=== PATIENT | male | born 1995 | race Two or more races ===

== ENCOUNTER 2017-06-06 18:05 | Emergency (ER) | payer SELFPAY ==
[~2017-06-06] VITALS: Ht 170.2 cm; Wt 102.1 kg
--- NOTE | 2017-06-06 18:30 | NUR ---
PT [id number]/lapd from snf: laceration to forehead s/p banging head against wall. NOTED AGITATED, COMBATIVE, RESLTLESS, YELLING, CURSING, KICKING. NOTED ACTIVE BLEEDING ON FOREHEAD 2 INCHES LAC. SAFELY PLACED ON 4 POINT RESTRAINTS PER PROTOCOL. SAFETY MEASURES PROVIDED. WILL MONITOR.
--- NOTE | 2017-06-06 18:40 | NUR ---
IV ACCESS STARTED. BLOOD DRAWN FOR LABS. MEDICATED ORDERED. WILL MONITOR.
[2017-06-06] MEDS ORDERED: LORAZEPAM INJ 2 MG/ML VIAL ONE (18:44)
[2017-06-06] MEDS ORDERED: diphenhydrAMINE HCL 50 MG/ML VIAL ONE (18:44)
[2017-06-06] MEDS ORDERED: HALOPERIDOL LACTATE INJ 5 MG/ML VIAL ONE (18:44)
[2017-06-06] MEDS ORDERED: TDAP [DIPH/PERTUSSIS/TET] 0.5 ML VIAL IM ONE ×2 (18:45→19:00)
[2017-06-06 18:56] LABS: BASOPHILS # (AUTO) 0.1 /CMM (0.0-0.2); BASOPHILS % (AUTO) 1.2 % (0.0-2.0); EOSINOPHILS % (AUTO) 0.4 % (0.0-6.0); HEMATOCRIT 49 % (39-51); HEMOGLOBIN 17.2 g/dL (13.5-17.5); LYMPHOCYTES # (AUTO) 1.5 /CMM (0.8-4.8); LYMPHOCYTES % (AUTO) 14.7 % (20.0-44.0); MEAN CORPUSCULAR HGB CONC 35 g/dl (31.0-36.0); MEAN CORPUSCULAR VOLUME 87 fL (80-96); MONOCYTES # (AUTO) 0.4 /CMM (0.1-1.30); MONOCYTES % (AUTO) 4.4 % (2.0-12.0); NEUTROPHILS # (AUTO) 8.1 /CMM (1.8-8.9); NEUTROPHILS % (AUTO) 79.3 % (43.0-81.0); PLATELET COUNT (AUTO) 243 /CMM (150-450); RDW COEFFICIENT OF VARIATION 13.7 (11.5-15.0); RED BLOOD CELL COUNT(AUTO) 5.61 MIL/uL (4.5-6.0); WHITE BLOOD COUNT (AUTO) 10.1 K/uL (4.3-11.0)
[2017-06-06] MEDS ORDERED: LORAZEPAM INJ 2 MG/ML VIAL IM ONE (19:00)
[2017-06-06] MEDS ORDERED: HALOPERIDOL LACTATE INJ 5 MG/ML VIAL IM ONE (19:00)
[2017-06-06] MEDS ORDERED: IV NS 0.9% 1,000 ML BAG IV ONE (19:00)
[2017-06-06] MEDS ORDERED: diphenhydrAMINE HCL 50 MG/ML VIAL IM ONE (19:00)
[2017-06-06 19:12] LABS: ALANINE AMINOTRANSFERASE 29 U/L (12-78); ALBUMIN 3.7 g/dL (3.4-5.0); ALCOHOL, BLOOD 255 mg/dL (0-0); ALKALINE PHOSPHATASE 60 U/L (46-116); ASPARTATE AMINOTRANSFERASE 27 U/L (15-37); BILIRUBIN,DIRECT 0.1 mg/dL (0.0-0.2); BILIRUBIN,TOTAL 0.2 mg/dL (0.2-1.0); CALCIUM, SERUM 8.1 mg/dL (8.5-10.1); CARBON DIOXIDE 22 mmol/L (21-32); CHLORIDE 115 mmol/L (98-107); CREATININE 0.9 mg/dL (0.6-1.3); GLUCOSE 123 mg/dL (74-106); POTASSIUM 3.6 mmol/L (3.5-5.1); SODIUM SERUM 150 mmol/L (136-145); TOTAL PROTEIN, SERUM 6.9 g/dL (6.4-8.2); UREA NITROGEN, BLOOD 8 mg/dL (7-18)
[2017-06-06 19:16] LABS: ACETAMINOPHEN < 2 ug/ml (10-30); SALICYLATE 2.2 mg/dL (2.8-20.0)
[2017-06-06 19:21] LABS: APPEARANCE,URINE Clear (CLEAR); BILIRUBIN,URINE Negative (NEGATIVE); BLOOD, URINE Trace-intact Ery/uL (NEGATIVE); COLOR,URINE Yellow (YELLOW); KETONES,URINE Trace (NEGATIVE); LEUKOCYTE ESTERASE ,URINE Negative (NEGATIVE); NITRITE, URINE Negative (NEGATIVE); PH,URINE 5.5 (5.0-8.0); PROTEIN,URINE Negative (NEGATIVE); UGLUCOSE Negative (NEGATIVE); UROBILINOGEN,URINE 0.2 EU/dL (0.2)
[2017-06-06 19:26] LABS: BACTERIA,URINE Rare /HPF (None Seen); SQUAMOUS EPITHELIAL CELL,UR Few /HPF (None Seen); WBC,URINE NONE SEEN /HPF (0-3)
[2017-06-06] MEDS ORDERED: MIDAZOLAM HCL 2 MG/2ML VIAL ONE ×2 (20:15→20:28)
[2017-06-06] MEDS ORDERED: MIDAZOLAM HCL 2 MG/2ML VIAL IV ONE ×2 (20:30→22:30)
--- NOTE | 2017-06-06 20:30 | NUR ---
PT TAKEN TO CT SCAN.
--- NOTE | 2017-06-06 20:35 | NUR ---
PT STILL COMBATIVE, RESTLESS AFTER FIRST DOSE OF VERSED. RECEIVED VERBAL ORDERS FROM DR. CHAO FOR SECOND DOSE OF VERSED 2MG IVP. ORDERS CARRIED OUT. RT AT BS.
--- NOTE | 2017-06-06 21:00 | NUR ---
VSS. CONTINUED ONGOING MONITORING.
[2017-06-06] MEDS ORDERED: LIDOCAINE HCL/PF 1% 30 ML SDV ONE (21:04)
--- NOTE | 2017-06-06 21:17 | NUR ---
AMILCAR FUNEZ AT FOR WOUND CARE.
--- NOTE | 2017-06-06 21:25 | NUR ---
RT CALLED TO GO WITH PT TO CT FOR OBSERVATION DURING LIGHT SEDATION. PT TRANSPORTED TO CT AT 2019. RT AT PT BEDSIDE THROUGHOUT PROCEDURE. RETURNED TO ER WITH PT AND REMAINED AT PT BEDSIDE UNTIL 2119. PT RESTING COMFORTABLY AT THIS TIME. NURSE NOTIFIED, AT PT BEDSIDE AT THIS TIME
--- NOTE | 2017-06-06 21:30 | NUR ---
PA AT BS FOR WOUND PROCEDURE.
--- NOTE | 2017-06-06 23:34 | NUR ---
Patient is resting comfortably in bed with eyes closed. Easily aroused. VSS
--- NOTE | 2017-06-07 00:49 | NUR ---
O2 PLACED BACK ON PT. ON MONITOR. VSS. NO S/S OF DISTRESS NOTED. RESP EVEN AND UNLABORED
--- NOTE | 2017-06-07 01:08 | NUR ---
AAO X4 AT THIS TIME. AMBULATED WITH STEADY GAIT TO RESTROOM. NO DIDTRESS NOTED. DENIES SI/HI.
--- NOTE | 2017-06-07 01:59 | NUR ---
Patient discharged to home in stable condition. Written and verbal after care instructions given. Patient verbalizes understanding of instruction. Ambulatory with a steady gait. IV removed. Catheter intact and site benign. Pressure and 4x4 applied to site. No bleeding noted.
[2017-06-07 02:00] VITALS: BP 127/77
== END 2017-06-07 02:01 | disposition home or self-care (01) ==
LOC: ER 18:13
DX: S01.01XA Laceration without foreign body of scalp, initial encounter (principal); E86.0 Dehydration; F10.129 Alcohol abuse with intoxication, unspecified; F12.10 Cannabis abuse, uncomplicated; W22.01XA Walked into wall, initial encounter; Y93.01 Activity, walking, marching and hiking; Y92.89 Other specified places as the place of occurrence of the external cause; Y99.8 Other external cause status
CPT/HCPCS: 12002; 36415; 51702; 70450; 72125; 80048; 80076; 80305; 80329; 81001; 85025; 86706; 86803; 87340; 90471; 90715; 96360; 96372 ×3; 99082; 99285; A4606; A6402; G0480 ×2; J1200; J1630; J2060; J2250; J3490; Z7610; 81000-TC